=== PATIENT | female | born 1995 | race Caucasian/White ===

== ENCOUNTER 2019-05-01 19:54 | Emergency (ER) | payer OTHER ==
[~2019-05-01] VITALS: Ht 170.2 cm; Wt 113.4 kg
[2019-05-01] MEDS ORDERED: KETO10 PO (21:03)
[2019-05-01] MEDS ORDERED: Cyclobenzaprine5 MG PO (21:03)
== END 2019-05-01 21:10 | disposition home or self-care (01) ==
LOC: ER 19:54
DX: S46.002A Unspecified injury of muscle(s) and tendon(s) of the rotator cuff of left shoulder, initial encounter (principal); Z88.0 Allergy status to penicillin; X50.0XXA Overexertion from strenuous movement or load, initial encounter; Y99.0 Civilian activity done for income or pay
CPT/HCPCS: 73030; 99283-25